=== PATIENT | male | born 1995 | race Caucasian/White ===

== ENCOUNTER 2020-06-13 22:07 | Emergency (ER) | payer OTHER, SELFPAY ==
--- NOTE | 2020-06-13 22:19 | PC.NURSE ---
pt brought to ed for eye flushing. is attempting to flush eyes but having difficulty keeping them open. sclera is clear. pt reported burning but has resolved.
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
[2020-06-13] MEDS: Fluorescein Sodium STRIP 1 STRIP EYE-BOTH (22:48)
--- NOTE | 2020-06-13 22:48 | PC.NURSE ---
MD at bedside for eye exam. Pt reports relief of discomfort to eyes after flushing with warm. Awaiting discharge.
[2020-06-13 22:49] VITALS: BP 134/59; PULSE 79; RESP 16; TEMP 36.8; O2SAT 98; BMI 39.5
--- NOTE | 2020-06-13 22:52 | PC.NURSE ---
Triage deferred until now as pt was at the sink flushing his eyes.
[2020-06-13 23:52] VITALS: BP 128/66; PULSE 80; RESP 16; O2SAT 98
== END 2020-06-14 00:03 | disposition home or self-care (01) ==
LOC: HO.ED 22:48
PROVIDERS: Emergency Provider Emergency Medicine Emergency Medical Services
DX: T59.891A Toxic effect of other specified gases, fumes and vapors, accidental (unintentional), initial encounter (principal); H57.13 Ocular pain, bilateral; Y92.59 Other trade areas as the place of occurrence of the external cause
CPT/HCPCS: 99284